=== PATIENT | male | born 1970 | race Caucasian/White ===

== ENCOUNTER 2024-03-26 11:21 | Emergency (ER) | payer OTHER ==
[2024-03-26 11:31] VITALS: BP 138/84; PULSE 89; RESP 20; TEMP 98.4; BMI 30.1
[2024-03-26] MEDS ORDERED: ACETAMINOPHEN 325 MG TABLET (FP) ONE (12:41)
[2024-03-26] MEDS: ACETAMINOPHEN 325 MG TABLET (FP) PO ONE (12:45)
== END 2024-03-26 14:04 | disposition home or self-care (01) ==
LOC: JER 11:21
DX: S09.90XA Unspecified injury of head, initial encounter (principal); F07.81 Postconcussional syndrome; R11.0 Nausea; R42 Dizziness and giddiness; H53.8 Other visual disturbances; R53.83 Other fatigue; W22.8XXA Striking against or struck by other objects, initial encounter
CPT/HCPCS: 70450-TC; 99284-25